=== PATIENT | male | born 1960 | race Caucasian/White ===

== ENCOUNTER 2019-09-12 02:44 | Emergency (ER) | payer MEDICAID, OTHER ==
[~2019-09-12] VITALS: Ht 172.7 cm; Wt 82.7 kg
[~2019-09-12 02:44] MED LIST: AMOX875T PO; ASPI-515 PO; ATOR40TA78 PO; LISI-170 PO; PRED10TA PO
[2019-09-12 02:52] VITALS: BP 166/74
[2019-09-12] MEDS ORDERED: IBUPROFEN 600 MG TABLET ONE (03:19)
[2019-09-12] MEDS ORDERED: ACETAMINOPHEN 500 MG TABLET ONE (03:19)
[2019-09-12] MEDS ORDERED: AMOXICILLIN 500 MG CAPSULE ONE (03:19)
[2019-09-12] MEDS ORDERED: IBUPROFEN 600 MG TABLET PO ONE (03:30)
[2019-09-12] MEDS ORDERED: AMOXICILLIN 500 MG CAPSULE PO ONE (03:30)
[2019-09-12] MEDS ORDERED: ACETAMINOPHEN 500 MG TABLET PO ONE (03:30)
== END 2019-09-12 03:45 | disposition home or self-care (01) ==
LOC: ED 03:13
DX: H66.002 Acute suppurative otitis media without spontaneous rupture of ear drum, left ear (principal); Z87.891 Personal history of nicotine dependence
CPT/HCPCS: 99284

== ENCOUNTER 2019-10-28 03:01 | Emergency (ER) | payer SELFPAY ==
[~2019-10-28] VITALS: Ht 172.7 cm; Wt 81.0 kg
[2019-10-28 03:07] VITALS: BP 145/94
== END 2019-10-28 03:57 | disposition home or self-care (01) ==
LOC: ED 03:10
DX: H66.002 Acute suppurative otitis media without spontaneous rupture of ear drum, left ear (principal); F17.200 Nicotine dependence, unspecified, uncomplicated
CPT/HCPCS: 99283